=== PATIENT | male | born 1985 | race African-American/Black ===

== ENCOUNTER 2023-07-09 14:21 | Emergency (ER) | payer OTHER ==
--- OUTSIDE RECORDS SUMMARY | 2023-07-09 14:24 | XMS REPORT | Continuity of Care Document ---
Author Name Unknown Address [address] [facility] [address] [place] [id number] [facility] thconnect Address [address] [facility] [address] [place] [address] Care Team Providers [facility] Nurse Name Role Phone Unavailable Unavailable Unavailable Encounters Start Date/Time End Date/Time Encounter Type Admission Type Attending Clinicians Care Facility Care Department Encounter ID Source 2022-12-17 08:39:39 2022-12-17 08:39:39 Outpatient [facility] S[facility] [id number] Thompson 2022-12-11 16:04:08 2022-12-11 16:04:08 Outpatient [facility] SFA [id number] Jesse Thompson 2022-02-06 13:59:10 2022-02-06 13:59:10 Outpatient [facility] SFA [id number] Jesse Thompson 2022-02-03 10:23:30 2022-02-03 10:23:30 Outpatient [facility] SFA [id number] Jesse Thompson
[2023-07-09] MEDS ORDERED: TDAP (DIPHTH,PERTUSS(ACELL),TET VAC) 0.5 ML VIAL IMVAC ONE (14:52)
[2023-07-09] MEDS ORDERED: IBUPROFEN 400 MG TAB ONE (14:52)
--- NOTE | 2023-07-09 16:25 | EDPHYS ---
Physician Documentation [facility] Name: Adalberto Mclean Age: 37 yrs Sex: Male : 1985 Arrival Date: 07/09/2023 Time: 14:21 Bed 10 Private MD: ED Physician Sade Wagner HPI: 07/08 15:57 This 37 yrs old Black Male presents to ER via EMS with complaints of Dog Bite. sd2 15:57 37-year-old male presents via EMS with chief complaint of dog bite to the left lower sd2 extremity. He reports he was walking down the street to the store to get cigarettes when he was attacked by an unknown pitbull. Animal control was called to the scene but it is unknown at this time whether or not the dog will be quarantined. They report they will come to the hospital to give further information. The patient reports his tetanus is not up-to-date.. Historical: - Allergies: 14:37 No Known Allergies; kc6 - PMHx: 14:37 Anxiety; Depressive disorder; kc6 - PSHx: 14:37 left knee injury; kc6 - Immunization history:: Adult Immunizations not up to date. - Infectious Disease History:: Denies. - Social history:: Smoking status: Patient reports the use of cigarette tobacco products, smokes one pack cigarettes per day. ROS: 15:57 Constitutional: Negative for fever, chills, and weight loss, Cardiovascular: Negative sd2 for chest pain, palpitations, and edema, Respiratory: Negative for shortness of breath, cough, wheezing. Abdomen/GI: Negative for abdominal pain, nausea, vomiting, diarrhea. MS/Extremity: Positive for injury and negative for deformity, Skin: Positive for injury, negative for rash, and discoloration, Exam: 15:57 Constitutional: This is a well developed, well nourished patient who is awake, alert, sd2 and in no acute distress. Head/Face: Normocephalic, atraumatic. Cardiovascular: Regular rate and rhythm with a normal S1 and S2. No gallops, murmurs, or rubs. 2+ distal pulses. Respiratory: Lungs have equal breath sounds bilaterally, clear to auscultation and percussion. No rales, rhonchi or wheezes noted. No increased work of breathing, no retractions or nasal flaring. Abdomen/GI: Soft, non-tender, with normal bowel sounds. No guarding or rebound. No evidence of tenderness throughout. Skin: Warm, dry with normal turgor. Multiple puncture wounds noted to the left anterior and posterior beltran. There is 1 area that is a little larger than a puncture wound at approximately 2 x 1 cm. There is no active bleeding from the area. No signs of foreign bodies. All wounds are superficial. MS/ Extremity: Pulses equal, no cyanosis. Neurovascular intact. Full, normal range of motion. Psych: Awake, alert, with orientation to person, place and time. Behavior, mood, and affect are within normal limits. Vital Signs: 14:35 BP 134 / 103; Pulse 77; Resp 16 S; Pulse Ox 96% on R/A; Weight 61.23 kg (R); Height 6 kc6 ft. 2 in. (R); Pain 5/10; 17:15 BP 145 / 96; Pulse 65; Resp 16 S; Pulse Ox 96% on R/A; kc6 14:35 Body Mass Index 17.33 (61.23 kg, 187.96 cm) kc6 14:35 Pain Scale: Adult kc6 MDM: 14:26 Patient medically screened. sd2 15:57 Differential diagnosis: superficial laceration, tendon injury, vascular injury, rabies, sd2 cellulitis, among others. Rabies Status: information regarding the need for rabies immunization is still pending. Data reviewed: vital signs, nurses notes, EMS record. I considered the following discharge prescriptions or medication management in the emergency department Medications were administered in the Emergency Department. See MAR. Historians other than the Patient: EMS: provides report. Counseling: I had a detailed discussion with the patient and/or guardian regarding the historical points, exam findings, and any diagnostic results supporting the discharge/admit diagnosis, the need for outpatient follow up, with Health Department for rabies immunization and immunoglobulin because we do not have it at this facility, to return to the emergency department if symptoms worsen or persist or if there are any questions or concerns that arise at home. ED course: Wound care performed. Wounds superficial. Discussed closure of the one larger wound but patient is in agreement to leave open and continue wound care to minimize risk of infection. Will follow up with the Health Department for rabies prophylaxis. Will discharge on oral antibiotics. . 07/08 14:50 Order name: Wound Care; Complete Time: 15:05 sd2 Administered Medications: 15:05 Drug: Tetanus-Diphtheria Toxoid IM Adult 0.5 ml IM once; Provide Vaccine Information kc6 Statement (VIS). 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: [employer]; Exp: ThuMar 24 2025; Lot #: [id number]; Series: 1 of 1; Patient Consent: Obtained; Date/Time: ; Source Name: Adalberto Mclean; Source Relationship: Self; Address Information: [address] [place] [address], [place] [address]; ; Education: Provided; VIS Presented Date: ; VIS Publication: Tetanus/Diphtheria (Td) Vaccine VIS 06/17/2016 (historic)} Route: IM; Site: affected area; 16:12 Follow up: Response: No adverse reaction kc6 15:05 Drug: Ibuprofen PO 800 mg PO once Route: PO; kc6 16:12 Follow up: Response: No adverse reaction; Pain is decreased kc6 Disposition Summary: 07/09/23 16:24 Discharge Ordered Problem: new sd2 Symptoms: have improved sd2 Condition: Stable sd2 Diagnosis - Dog bite to left lower extremity sd2 Followup: sd2 - With: Private Physician - When: 2 - 3 days - Reason: Wound Recheck, Recheck today's complaints, Continuance of care, Re-evaluation by your physician Discharge Instructions: - Discharge Summary Sheet sd2 - Animal Bite, Adult sd2 Forms: - Medication Reconciliation Form sd2 - Antibiotic Education sd2 - Prescription Opioid Use sd2 - Patient Portal Instructions sd2 - Leadership Thank You Letter sd2 Prescriptions: - Augmentin 875-125 mg Oral Tablet - take 1 tablet ORAL route every 12 hours for 10 days; 20 tablet; Refills: 0, sd2 Product Selection Permitted Signatures: Sade Wagner MD MD sd2 Radha Mcgowan RN RN kc6
--- NOTE | 2023-07-09 16:25 | ER ---
Nurse's Notes [facility] Name: Adalberto Mclean Age: 37 yrs Sex: Male : 1985 Arrival Date: 07/09/2023 Time: 14:21 Bed 10 Private MD: Diagnosis: Dog bite to left lower extremity Presentation: 07/08 14:35 Chief complaint: Patient states: he was walking home from [employer] in [address] [place] [address] EMS gave 1gm PO Tylenol en route. Coronavirus screen: At this time, the client does not indicate any symptoms associated with coronavirus-19. Ebola Screen: No symptoms or risks identified at this time. Initial Sepsis Screen: Does the patient meet any 2 criteria? No. Patient's initial sepsis screen is negative. Does the patient have a suspected source of infection? No. Patient's initial sepsis screen is negative. Risk Assessment: Do you want to hurt yourself or someone else? Patient reports no desire to harm self or others. Onset of symptoms was July 09, 2023. 14:35 Method Of Arrival: EMS: [place] [id number] 14:35 Acuity: MARQUEZ 3 kc6 Triage Assessment: 14:37 Bite description: bite sustained to left beltran is from animal, by a dog, animal [facility] information: vaccination(s) is unknown. General: Appears in no apparent distress. comfortable, unkempt, well developed, Behavior is calm, cooperative, appropriate for age. Pain: Complains of pain in left leg Pain currently is 5 out of 10 on a pain scale. EENT: No signs and/or symptoms were reported regarding the EENT system. Neuro: Level of Consciousness is awake, alert, obeys commands, Oriented to person, place, time, situation, Appropriate for age. Cardiovascular: Capillary refill < 3 seconds. Respiratory: Airway is patent Trachea midline Respiratory effort is even, unlabored, Respiratory pattern is regular, symmetrical. GI: No signs and/or symptoms were reported involving the gastrointestinal system. : No signs and/or symptoms were reported regarding the genitourinary system. Derm: Skin is healthy with good turgor, Skin is pink, warm \T\ dry. Musculoskeletal: No signs and/or symptoms reported regarding the musculoskeletal system. Circulation, motion, and sensation intact. Capillary refill < 3 seconds, Range of motion: intact in all extremities. 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 - Infectious Disease History:: Denies. - Social history:: Smoking status: Patient reports the use of cigarette tobacco products, smokes one pack cigarettes per day. Screenin:[facility] ED Fall Risk Assessment (Adult) History of falling in the last 3 months, [facility] including since admission No falls in past 3 months (0 pts) Confusion or Disorientation No (0 pts) Intoxicated or Sedated No (0 pts) Impaired Gait No (0 pts) Mobility Assist Device Used No (0 pt) Altered Elimination No (0 pt) Score/Fall Risk Level 0 - 2 = Low Risk. Abuse screen: Denies threats or abuse. Denies injuries from another. Nutritional screening: No deficits noted. Tuberculosis screening: No symptoms or risk factors identified. Assessment: 14:39 Reassessment: please see triage. [facility] 14:45 Reassessment: spoke with Fanny at [facility]. stated an office reported it on scene and [facility] animal control is aware. 15:20 Reassessment: per pts request, analy Mercedes notified that pt is here. stated she is on [facility] her way. 16:10 Reassessment: spoke with Fanny from [facility]. she stated animal control attempted to make kc6 contact with the pt via phone. informed that pt does not have a phone on him and that someone will need to physically come see the pt. verbalized understanding, stated she will have animal control call us when they are on their way. 16:13 Reassessment: analy mercedes at bedside. kc6 16:24 Reassessment: Animal Control ETA is 45 minutes. aa5 16:50 Reassessment: Animal Control at bedside speaking with pt. kc6 17:01 Reassessment: Patient appears in no apparent distress at this time. No changes from kc6 previously documented assessment. Patient and/or family updated on plan of care and expected duration. Pain level reassessed. Patient is alert, oriented x 3, equal unlabored respirations, skin warm/dry/pink. Patient denies pain at this time. Patient states feeling better. Patient states symptoms have improved. Vital Signs: 14:35 BP 134 / 103; Pulse 77; Resp 16 S; Pulse Ox 96% on R/A; Weight 61.23 kg (R); Height 6 kc6 ft. 2 in. (R); Pain 5/10; 17:15 BP 145 / 96; Pulse 65; Resp 16 S; Pulse Ox 96% on R/A; kc6 14:35 Body Mass Index 17.33 (61.23 kg, 187.96 cm) kc6 14:35 Pain Scale: Adult kc6 ED Course: 14:25 Patient arrived in ED. bc6 14:26 Sade Wagner MD is Attending Physician. sd2 14:35 Radha Mcgowan, RN is Primary Nurse. kc6 14:35 Maintain EMS IV. Dressing intact. Good blood return noted. Site clean \T\ dry. Gauge \T\ yasmin 6 site: 18G LAC. 14:37 Triage completed. kc6 14:37 Arm band placed on. kc6 14:40 Patient has correct armband on for positive identification. Bed in low position. Call kc6 light in reach. Side rails up X2. Client placed on continuous cardiac and pulse oximetry monitoring. NIBP monitoring applied. Pillow given. 15:20 Wound care: to puncture located on left leg and left beltran was cleaned with Hibiclens, kc6 irrigated with normal saline, dressed with Kerlix. 16:11 Assisted to bathroom. kc6 17:16 Provided Education on: wound care. kc6 17:16 No provider procedures requiring assistance completed. IV discontinued, intact, kc6 bleeding controlled, No redness/swelling at site. Pressure dressing applied. Administered Medications: 15:05 Drug: Tetanus-Diphtheria Toxoid IM Adult 0.5 ml IM once; Provide Vaccine Information kc6 Statement (VIS). 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: [employer]; Exp: ThuMar 24 2025; Lot #: [id number]; Series: 1 of 1; Patient Consent: Obtained; Date/Time: ; Source Name: Adalberto Mclean; Source Relationship: Self; Address Information: [address] [place] [address], [place] [address]; ; Education: Provided; VIS Presented Date: ; VIS Publication: Tetanus/Diphtheria (Td) Vaccine VIS 06/17/2016 (historic)} Route: IM; Site: affected area; 16:12 Follow up: Response: No adverse reaction kc6 15:05 Drug: Ibuprofen PO 800 mg PO once Route: PO; kc6 16:12 Follow up: Response: No adverse reaction; Pain is decreased kc6 Medication: 17:16 VIS not applicable for this client. kc6 Outcome: 16:24 Discharge ordered by . pankaj 17:16 Discharged to home ambulatory, with family, kc6 17:16 Condition: improved 17:16 Discharge instructions given to patient, family, Instructed on discharge instructions, follow up and referral plans. medication usage, wound care, Demonstrated understanding of instructions, follow-up care, medications, wound care, Prescriptions given X 1, 17:17 Patient left the ED. kc6 Signatures: Fara Licea, RN RN [email or web address] Sade Wagner MD MD sd2 Radha Mcgowan RN RN kc6 Ashwini [email or web address] Corrections: (The following items were deleted from the chart) 14:39 14:37 Derm: No signs and/or symptoms reported regarding the dermatologic system. Skin kc6 is intact, is healthy with good turgor, Skin is pink, warm \T\ dry. kc6
[2023-07-09 17:33] VITALS: BP 145/96; O2SAT 96
== END 2023-07-09 17:17 | disposition home or self-care (01) ==
LOC: ER 14:21
DX: S81.832A Puncture wound without foreign body, left lower leg, initial encounter (principal); W54.0XXA Bitten by dog, initial encounter; Z23 Encounter for immunization; F17.210 Nicotine dependence, cigarettes, uncomplicated
CPT/HCPCS: 90471; 99285